=== PATIENT | male | born 1995 | race Hispanic/Latino ===

== ENCOUNTER 2022-05-18 19:24 | Emergency (ER) | payer OTHER ==
[~2022-05-18] VITALS: Ht 177.8 cm; Wt 61.2 kg
[2022-05-18] MEDS ORDERED: CEFTRIAXONE 1 GM VIAL IM ONE (19:30)
[2022-05-18] MEDS ORDERED: AZITHROMYCIN 250 MG TAB PO ONE (19:30)
[2022-05-18] MEDS ORDERED: METRONIDAZOLE 500 MG TAB PO ONE (19:45)
[2022-05-18] MEDS ORDERED: DOXYCYCLINE HY100 M3 MT (19:52)
[2022-05-18] MEDS ORDERED: CEFTRIAXONE 1 GM VIAL ONE (20:03)
[2022-05-18] MEDS ORDERED: AZITHROMYCIN 250 MG TAB ONE (20:04)
[2022-05-18] MEDS ORDERED: METRONIDAZOLE 500 MG TAB ONE (20:04)
[2022-05-19] MEDS ORDERED: DOXYCYCLINE HYCLATE TABLET 100 MG TAB PO ONE (09:00)
== END 2022-05-18 20:18 | disposition home or self-care (01) ==
LOC: ER 19:45
DX: N34.2 Other urethritis (principal)
CPT/HCPCS: 99283; J0696